=== PATIENT | male | born 1995 | race Caucasian/White ===

== ENCOUNTER 2019-10-22 23:04 | Emergency (ER) | payer SELFPAY ==
[2019-10-22 23:05] VITALS: BP 128/92; PULSE 89; RESP 16; TEMP 36.7; O2SAT 99; BMI 25.7
--- NOTE | 2019-10-22 23:23 | CT_ITS ---
STUDY: CT FACIAL BONES WITHOUT CONTRAST REASON FOR EXAM: Male, 24 years old. HIT ON LEFT JAW. PAIN RIGHT CHEEK. NOW FEELS LIKE HE ISN''T HEARING RIGHT. RADIATION DOSAGE (If Supplied By Facility): CTDIvol = ( 29.38 ) mGy, DLP = ( 606.22 ) mGycm TECHNIQUE: The patient was scanned in a multi detector CT scanner. Sagittal and coronal images were reconstructed. Individualized dose optimization techniques were used for this CT. COMPARISON: None. FINDINGS: Negative for mandibular fracture. Normal temporomandibular joints. Normal temporal bones including mastoid air cells, mastoid antrum and middle ears. There is an ovoid soft tissue filling defect in the right external auditory canal which resembles normal or wax. The left external auditory canal is clear. Normal orbital aceves and orbital contents. Normal nasal bones and anterior nasal spine. Normal facial bones. There is no demonstrated fracture. Moderate polypoid mucosal thickening versus retention cyst at the base of the right maxillary sinus and a small retention cyst of the left maxillary sinus. One opacified anterior right ethmoid sinus. One opacified left anterior ethmoid sinus. CT/Sinus/Facial Bone IMPRESSION: Negative for mandibular or facial fractures. Normal temporal bones, mastoid air cells, mastoid antrum and middle ear landmarks. Normal inner ear structures and internal auditory canals. Filling defect in the right external auditory canal appears to be earwax. Normal left external auditory canal. Incidental sinus findings as stated above. Electronically Signed: Vanna Izquierdo MD at 23:49 EDT , Service support ,
--- NOTE | 2019-10-22 23:23 | ED.VIS.GEN ---
History of Present Illness Chief Complaint: Other, Pain/Inj Informant: Patient Onset: Today Narrative: Patient presents for evaluation right jaw pain and concerns for decreased hearing after getting hit by a softball 8 PM 3 hours ago. States the ground ball came up hitting directly in the jaw. States had some loss of hearing then however pain over the jawline with opening of his mouth and chewing. No previous similar incidents. No headache. No neck pain. No nausea or vomiting. Prior similar symptoms: No Past Medical History - Allergies and Home Meds Allergies/Adverse Reactions: Allergies No Known Allergies Allergy (Verified 10/22/19 23:07) Primary Care Physician: Care Physician,No Primary [Primary Care Provider] - Past Medical History: None Smoking Status: Never smoker Review of Systems General: Denies: Chills, Fever, Sweats Eyes: Denies: Visual changes - bilaterally, Diplopia ENT: Reports: - - Decreased hearing right ear. Right jaw pain. Denies: Rhinorrhea, Sore throat Cardiovascular: Denies: Chest pain, Palpitations Respiratory: Denies: Dyspnea, Cough, Dyspnea on exertion Gastrointestinal: Denies: Abdominal pain, Nausea, Vomiting, Diarrhea, Melena, Hematochezia Genitourinary: Denies: Dysuria, Hematuria, Frequency Musculoskeletal: Denies: Back pain, Extremity Pain Skin: Denies: Rash, Wounds Neurological: Denies: Headache, Weakness, Numbness Physical Exam Vital Signs/Narrative: Vital Signs Temp Pulse Resp BP Pulse Ox 10/22/19 23:05 98.0 F 89 16 128/92 H 99 Inital Vital Signs reviewed: Yes General: Well nourished, Well developed, No Acute Distress Head: Normocephalic, Atraumatic Eyes: Perrl, EOMI ENT: Moist mucous membranes, No rhinorrhea, - - Right ear: Cerumen impaction, unable to visualize TM, no bleeding noted. There is no trismus of the mouth, no bleeding inside the gumline. There is tender palpation of the right TMJ with opening of the mouth. Neck: Supple, Nontender Cardiovascular: Regular rate, Regular rhythm, No murmurs Respiratory: No distress, CTA bilaterally, Chest nontender Abdomen: Soft, Nontender, Nondistended, Normal bowel sounds Back: Nontender, Normal Inspection Extremities: Nontender, No edema Skin: Normal color, No rash Neurological: Alert, Oriented x3, Cranial nerves II-XII grossly intact, Normal Strength, Normal Sensation Psychological: Normal affect, Normal Mood Diagnostic/Tx/Re-eval Clinical Impression(s) from Imaging Studies Facial/Sinus 10/22/19 23:23 IMPRESSION: Negative for mandibular or facial fractures. Normal temporal bones, mastoid air cells, mastoid antrum and middle ear landmarks. Normal inner ear structures and internal auditory canals. Filling defect in the right external auditory canal appears to be earwax. Normal left external auditory canal. Incidental sinus findings as stated above. Electronically Signed: Vanna Izquierdo MD at 23:49 EDT , Service support , - Medical Decision Making Patient on injury to the chin having pain at TMJ. There is no trismus. Facial CT obtained shows no fracture. Patient with cerumen impaction right ear likely causing his hearing loss. Discussed would be able to flush however risk benefits with rupture of TM discussed, he was okay holding off at this time and monitoring symptoms. He does not use Q-tips. He was Tylenol Motrin as needed. He will follow-up as an outpatient. All questions were answered. ED Disposition - Plan for ED Patient: Disposition: Home or Assisted Living Diagnosis: TMJ (sprain of temporomandibular joint), Impacted cerumen of right ear Instructions: Helping Your Temporomandibular Joint (TMJ) Heal, CERUMEN IMPACTION, Home Care Referrals: Care Physician,No Primary [Primary Care Provider] - 1 Week
== END 2019-10-23 00:27 | disposition home or self-care (01) ==
PROVIDERS: Emergency Provider Emergency Medicine
DX: M26.601 Right temporomandibular joint disorder, unspecified (principal); H61.21 Impacted cerumen, right ear
CPT/HCPCS: 70486; 99282